=== PATIENT | female | born 1940 | race Caucasian/White ===

== ENCOUNTER → 2016-08-15 | Outpatient (CLI) | payer OTHER ==
[~2016-08-15] MED LIST: ACT30 PO; ACTOS30 MG PO; BENADRYL ALLERG25 M1 PO; BENTYL10 MG PO; CIPRO250 MG PO; CLINDAMYCIN HY150 M1 PO; COZ25 PO; COZAAR50 MG PO; FLO4 PO; IMURAN50 MG PO; KLOR-CON M1010 MEQ PO; LAC PO; LEXAPRO20 MG PO; NAPROSYN375 MG PO; NAPROSYN500 MG PO; NORCO1 TA1 PO; NORCO1 TA2 PO; ONDANSETRON4 M3 PO; PERCOCET1 TAB PO; PLAQUENIL200 MG PO; PRILOSEC OTC20 M1 PO; PRILOSEC20 MG PO; ROB750 PO; ULT50 PO
== END | disposition home or self-care (01) ==
LOC: MI 09:07
PROC: BR39ZZZ Magnetic Resonance Imaging (MRI) of Lumbar Spine (ICD-10-PCS; principal; 2016-08-15)
DX: M54.5 Low back pain (principal)

== ENCOUNTER → 2019-02-13 | Outpatient (CLI) | payer OTHER | END | disposition home or self-care (01) | LOC: RD 10:57 | DX: G89.4 Chronic pain syndrome (principal) ==